=== PATIENT | female | born 1960 | race Two or more races ===

== ENCOUNTER 2020-09-30 06:53 | Emergency (ER) | payer SELFPAY ==
[~2020-09-30] VITALS: Ht 167.6 cm; Wt 65.0 kg
--- NOTE | 2020-09-30 07:39 | NUR ---
PT GIVEN INSTRUCTIONS TO CHANGE MULTIPLE TIMES AND EDUCATED ON ED PROCESS. PT NOT RESPONDING OR STATING "I HEAR AND I RELEASE" TO ANY ATTEMPT AT ASSESSMENT TO BOTH RN AND ERPA. PER LAST PUTTER AWAY WHO IS SITTING, PT TOOK PHONE CALL AND HAD LUCID CONVERSATION WITH FRIEND STATING "I'M HAVING AN EMERGENCY RIGHT NOW". PT GIVEN OPPORTUNITY TO CHANGE WITHOUT ASSISTANCE AND REFUSED. PT CHANGED WITH HELP OF RN AND DINING ROOM HOSTESS AND GIVEN MUCH PRIVACY POSSIBLE WHILE MAINTAINING SAFETY. PT NOT ANSWERING ANY QUESTIONS AT THIS TIME. ED MD IN TO ASSESS.
--- NOTE | 2020-09-30 08:02 | NUR ---
UPON VS, PT REFUSES SPO2 AND TEMP EVALUATION. PT POSTURING DURING BP ASSESSMENT, MOVING TOWARD RN. PT ENCOURAGED TO SIT ON BED. REFUSES LAB DRAW. ERMD AWARE. FUR NAILER AWARE.
--- NOTE | 2020-09-30 08:17 | NUR ---
ACCORDING TO IMPORT/EXPORT AGENT, PHONE CALL MADE EARLIER WHEN RN WAS NOT PRESENT, PT WAS CALLING IN TO WORK LETTING THEM KNOW SHE WOULD NOT BE COMING IN TODAY. PT ACTS CONFUSED WHEN ASKED BY RN AND MD ABOUT PHONE CALL. ALL BELONGINGS BAGGED, LABELLED AND PLACED IN PSYCH LOCKER IN ROOM 2 BIN. TWO BAGS.
[2020-09-30] MEDS ORDERED: LEVO25TA2 PO (08:22)
--- NOTE | 2020-09-30 08:59 | NUR ---
PT AWARE OF NEED FOR UA. PT ABLE TO RESPOND TO QUESTIONS APPROPRIATELY AT THIS TIME, SUCH WHAT HER ALLERGIES ARE AND REPORTS AT LEAST ONE OF HER MEDICATIONS. PT SITTING UP IN BED WITH BLANKET ON. SITTER REMAINS OUTSIDE OF ROOM FOR DIRECT OBSERVATION AND Q15 MIN SAFETY CHECKS.
--- NOTE | 2020-09-30 09:25 | NUR ---
PO FLUIDS PROVIDED. PT AWARE OF HALLWAY PHONE SHE MAY USE WHILE SUPERVISED BY SITTER.
[2020-09-30 10:24] VITALS: BP 137/77
--- NOTE | 2020-09-30 10:32 | NUR ---
PT REFUSING DC, LUCID WITH RN. SHOUTING AT SITTER. SECURITY OUTSIDE OF ROOM FOR SAFETY.
--- NOTE | 2020-09-30 10:52 | NUR ---
LEGAL CASHIER AND ERMD AWARE OF PT'S REFUSAL TO GET DRESSED. SHOUTING AT SECURITY AND SITTER.
== END 2020-09-30 11:12 | disposition home or self-care (01) ==
LOC: ED 11:05
DX: F29 Unspecified psychosis not due to a substance or known physiological condition (principal); F60.9 Personality disorder, unspecified
CPT/HCPCS: 99283